=== PATIENT | female | born 1960 | race Caucasian/White ===

== ENCOUNTER 2020-06-09 13:03 | Outpatient (CLI) | payer BC ==
[~2020-06-09 13:03] MED LIST: Iopamidol 370 76% 100 ML VIAL ONE
== END 2020-06-09 13:04 | disposition home or self-care (01) ==
LOC: NAV CT 13:03
PROVIDERS: ATTEND Urology
DX: Z01.818 Encounter for other preprocedural examination (principal); R31.0 Gross hematuria
CPT/HCPCS: 36415; 74178; 82565; Q9967

== ENCOUNTER 2021-04-12 14:08 | Outpatient (CLI) | payer BC | END 2021-04-12 14:09 | disposition home or self-care (01) | LOC: NAV RAD 14:08 | PROVIDERS: ATTEND Nurse Practitioner Family | DX: M54.50 Low back pain, unspecified (principal); M25.552 Pain in left hip; M47.816 Spondylosis without myelopathy or radiculopathy, lumbar region; M41.9 Scoliosis, unspecified | CPT/HCPCS: 72100 ==

== ENCOUNTER 2024-05-27 16:14 | Emergency (ER) | payer BC ==
[2024-05-27 17:34] LABS: #Eosinophils 0.1 thou/uL (0.0-0.7); #Lymphocytes 1.6 thou/uL (1.20-3.40); #Monocytes 0.3 thou/uL (0.11-0.59); #Neutrophils 2.6 thou/uL (1.40-6.50); %Basophils 0.7 % (0.0-1.0); %Eosinophils 2.3 % (0.0-10.0); %Lymphocytes 34.4 % (21.0-51.0); %Monocytes 6.8 % (0.0-10.0); %Neutrophils 55.8 % (42.0-75.0); Hematocrit 39.4 % (36.0-47.0); Hemoglobin 12.2 g/dL (12.0-16.0); Mean Corpuscular HGB CONC 30.9 g/dL (32.0-36.0); Mean Platelet Volume 5.4 fL (7.4-10.4); Platelet Count 247 10x3/uL (130-400); RBC Distribution Width 12.9 % (11.5-14.5); Red Blood Cell (RBC) Count 4.69 mill/uL (4.20-5.40); White Blood Cell (WBC) Count 4.7 10x3/uL (4.8-10.8)
[2024-05-27] MEDS ORDERED: Aspirin Chewable 81 MG TAB ONE (18:13)
[2024-05-27] MEDS ORDERED: Nitroglycerin 2% Ointment 1 INCH/1 GM Packet ONE (18:13)
[2024-05-27 18:15] LABS: ALT (SGPT) 16 U/L (Less than 34); AST (SGOT) 20 U/L (11-34); Albumin 4.6 g/dL (3.1-4.5); Alkaline Phosphatase 66 U/L (40-110); Anion Gap 13 mmol/L (10-20); BUN (Urea Nitrogen) 15 mg/dL (9.8-20.1); Bilirubin, Total 0.6 mg/dL (0.3-1.2); Calc. Creatinine Clearance 0 mL/min (70-130); Calcium 10.8 mg/dL (7.8-10.44); Carbon Dioxide 25 mmol/L (23-31); Chloride 107 mmol/L (98-107); Estimated GFR 76; Globulin 2.8 g/dL (2.4-3.5); Glucose 99 mg/dL (80-115); Potassium 3.9 mmol/L (3.5-5.1); Protein, Total 7.4 g/dL (5.8-8.1); Sodium 141 mmol/L (136-145)
[2024-05-27 18:16] LABS: Troponin I Less than 0.010 ng/mL (< 0.028)
[2024-05-27 20:49] LABS: Troponin I Less than 0.010 ng/mL (< 0.028)
== END 2024-05-27 21:20 | disposition home or self-care (01) ==
LOC: NAV ERS 16:14
DX: I10 Essential (primary) hypertension (principal)
CPT/HCPCS: 71045; 80053; 84484; 85025; 93005; 94760